=== PATIENT | male | born 1950 | race Caucasian/White ===

== ENCOUNTER 2022-04-13 06:58 | Emergency (ER) | payer MEDICARE ==
--- NOTE | 2022-04-13 07:14 | ED Physician Documentation ---
PD HPI CHEST PAIN - Stated complaint Stated Complaint: CHEST TIGHTNESS/PAIN - History obtained from History obtained from: Patient - History of Present Illness Timing - onset: How many hours ago (1), Today Timing - onset during: Rest (The patient was up awake for the day in had breakfast and was rested with onset of chest tightness, sweaty lightheaded and nausea. This lasted about 15 to 20 minutes and then improved. He is feeling okay on route here with his driving.) Timing - duration: Minutes (15-20) Timing - details: Abrupt onset, Now resolved Quality: Tightness. No: Sharp, Tearing Location: Substernal Worsened by: No: Inspiration, Movement Associated symptoms: Shortness of air, Nausea, Feeling faint / dizzy. No: Palpitations Similar symptoms before: No diagnosis (He had a similar episode to this also lasted about 15 to 20 minutes about a month ago. Seen in follow-up with his primary care who did an ECHO outpt showing mild MR and LBBB; good EF. He was referred to cardiology and saw Dr. Wagner last week with a plan for cardiac CT scan.) Recently seen: Clinic (PMD and Cardiology, Dr. Wagner.) Review of Systems Constitutional: denies: Fever, Chills Nose: denies: Rhinorrhea / runny nose, Congestion Throat: denies: Sore throat Cardiac: denies: Palpitations, Pedal edema, Calf pain Respiratory: denies: Cough GI: denies: Abdominal Pain, Vomiting, Diarrhea, Bloody / black stool Neurologic: denies: Focal weakness, Near syncope, Altered mental status, Headache PD PAST MEDICAL HISTORY - Past Medical History Past Medical History: Yes Cardiovascular: None Respiratory: None Neuro: None Endocrine/Autoimmune: None GI: None : None HEENT: None Psych: None Musculoskeletal: Osteoarthritis Derm: None - Past Surgical History Past Surgical History: Yes - Present Medications Home Medications: Ambulatory Orders Medication Instructions Recorded Confirmed No Known Home Medications 04/13/22 04/13/22 - Allergies Allergies/Adverse Reactions: Allergies Allergy/AdvReac Type Severity Reaction Status Date / Time No Known Drug Allergies Allergy Verified 04/13/22 07:12 - Living Situation Living Situation: reports: With spouse/s.o. Living Arrangement: reports: At home, Other (usually healthy, active and physically capable for house and yard chores, exercise, etc. ) - Social History Does the pt smoke?: No Smoking Status: Never smoker Does the pt drink ETOH?: Yes Does the pt have substance abuse?: No - Family History Family history: reports: CAD - Immunizations Immunizations are current?: No - POLST Patient has POLST: No PD ED PE NORMAL - Vitals Vital signs reviewed: Yes - General General: Alert and oriented X 3, No acute distress, Well developed/nourished - HEENT HEENT: Moist mucous membranes, Pharynx benign - Neck Neck: Supple, no meningeal sign, No adenopathy - Cardiac Cardiac: RRR, No rub, Other (1/6 murmur right chest to back. ) - Respiratory Respiratory: No respiratory distress, Clear bilaterally - Abdomen Abdomen: Soft, Non tender, Non distended - Derm Derm: Normal color, Warm and dry - Extremities Extremities: Normal ROM s pain, No edema, No calf tenderness / cord - Neuro Neuro: Alert and oriented X 3, No motor deficit, Normal speech Results - Vitals Vitals: Vital Signs - 24 hr 04/13/22 04/13/22 04/13/22 07:05 08:27 09:30 Temperature 36.4 C L Heart Rate 72 62 62 Respiratory 17 10 L 22 Rate Blood Pressure 154/93 H 143/83 H 125/81 H O2 Saturation 99 96 95 04/13/22 04/13/22 04/13/22 09:53 11:18 12:40 Temperature Heart Rate 64 64 78 Respiratory 12 16 14 Rate Blood Pressure 117/82 H 122/80 151/85 H O2 Saturation 98 98 97 04/13/22 15:04 Temperature Heart Rate 62 Respiratory 11 L Rate Blood Pressure 132/105 H O2 Saturation 99 Oxygen O2 Source Room air - EKG (time done) 07:05 Rate: Rate (enter#) (64) Rhythm: NSR [place]: Normal Intervals: LBBB QRS: Normal Ischemia: Normal ST segments, Non specific changes. No: ST elevation c/w ischemia - Labs Labs: Laboratory Tests 04/13/22 04/13/22 04/13/22 07:19 07:19 07:19 WBC 6.1 RBC 4.70 Hgb 14.7 Hct 44.0 MCV 93.6 MCH 31.3 H MCHC 33.4 RDW 12.8 Plt Count 274 MPV 9.9 Neut # (Auto) 3.5 Lymph # (Auto) 1.2 L [place] # (Auto) 0.8 Eos # (Auto) 0.5 Baso # (Auto) 0.0 Absolute Nucleated RBC 0.00 Nucleated RBC % 0.0 Sodium 137 Potassium 4.4 Chloride 102 Carbon Dioxide 28 Anion Gap 7.0 BUN 15 Creatinine 0.8 Estimated GFR (MDRD) 95 Glucose 114 H Calcium 9.4 Total Bilirubin 0.8 AST 20 ALT 17 Alkaline Phosphatase 63 Troponin I High Sens 22.0 H* Total Protein 7.5 Albumin 3.9 Globulin 3.6 Albumin/Globulin Ratio 1.1 Lipase 48 04/13/22 04/13/22 08:57 12:45 WBC RBC Hgb Hct MCV MCH MCHC RDW Plt Count MPV Neut # (Auto) Lymph # (Auto) [place] # (Auto) Eos # (Auto) Baso # (Auto) Absolute Nucleated RBC Nucleated RBC % Sodium Potassium Chloride Carbon Dioxide Anion Gap BUN Creatinine Estimated GFR (MDRD) Glucose Calcium Total Bilirubin AST ALT Alkaline Phosphatase Troponin I High Sens 82.1 H* 109.3 H* Total Protein Albumin Globulin Albumin/Globulin Ratio Lipase - Rads (name of study) chest xray Radiology: Prelim report reviewed (no acute process), See rad report chest CTA Radiology: Prelim report reviewed (no PE. 1.5 cm spiculated mass right upper lobe lung concerning for tumor, suggest f/u biopsy. ), See rad report PD MEDICAL DECISION MAKING - ED course Complexity details: reviewed results, re-evaluated patient, considered differential, d/w patient, d/w production support consultant (Dr. Wagner, who feels the patient needs more urgent cardiac evaluation, likely heart cath. Suggests transfer. ) ED course: Patient presented with an abrupt episode of chest tightness associated with nausea sweaty and lightheaded. Concern for cardiac cause. The symptoms did improve after just 20 minutes or so. His initial EKG does not show any ischemic changes. His troponin level is just barely above normal on initial reading. However this was done very shortly after the symptoms. A repeat troponin 1-1/2 hours later showed a fourfold increase from 22-80. Repeat another 2 hours after is showing over 100. Even though this is not a very large rise in the troponin absolute number, it is a fourfold then 5 fold increase suggestive of acute injury. I had talked with Dr. Wagner with the initial [address] Wagner did feel the patient needed more urgent evaluation given the test results. He does have the underlying left bundle branch block which makes stress testing more difficult to interpret. I did have concern for potential PE as the patient had had some travel recently. The abrupt nature of the symptoms could also be suggestive that way. I did a CT of the chest angio. This did not show any PEs. However there was a incidental finding of a spiculated 1-1/2 cm mass in the right upper lobe concerning for lung cancer. Suggested his outpatient biopsy. I did convey this to the patient and his . However I do not feel that this finding on the CT chest would cause the symptoms he had. Alternatives to unstable angina or small vessel CO is the possibility of intermittent dysrhythmia that allowed for myocardial injury. However coronary vascular abnormalities need to be evaluated certainly. [facility] did not initially have any beds available but they were expecting discharges. They subsequently did call back with bed available and accepted transfer of the patient. - Critical Care Time(min): 35 Time Includes: Direct patient care, Document care, Medical consult Data interpretation: Labs, Pulse ox, See progress note Procedures excluded from critical care time: EKG Departure - Departure Disposition: 02 Transfer Acute Care Hosp Clinical Impression: Elevated troponin, Chest tightness, Mass of right lung, Non-STEMI (non-ST e levated myocardial infarction) Condition: Stable Record reviewed to determine appropriate education?: Yes
[2022-04-13] MEDS ORDERED: ONDANSETRON 4 MG/2 ML VIAL IVP STA (07:42)
[2022-04-13] MEDS: MAG HYDROX/AL HYDROX/SIMETH 30 ML UDC PO STA ×2 (07:46→07:47)
[2022-04-13 07:56] LABS: BASOPHILS % (AUTO) 0.7 %; EOSINOPHILS # (AUTO) 0.5 10^3/uL (0.0-0.7); EOSINOPHILS % (AUTO) 8.7 %; HGB - HEMOGLOBIN 14.7 g/dL (14.0-18.0); LYMPHOCYTES # (AUTO) 1.2 10^3/uL (1.5-3.5); LYMPHOCYTES % (AUTO) 19.9 %; MEAN CORPUSCULAR HEMOGLOBIN 31.3 pg (27.0-31.0); MEAN CORPUSCULAR HGB CONC 33.4 g/dL (32.0-36.0); MEAN CORPUSCULAR VOLUME 93.6 fL (80.0-94.0); MEAN PLATELET VOLUME 9.9 fL (7.4-11.4); MONOCYTES # (AUTO) 0.8 10^3/uL (0.0-1.0); MONOCYTES % (AUTO) 13.4 %; NEUTROPHILS # (AUTO) 3.5 10^3/uL (1.5-6.6); NEUTROPHILS % (AUTO) 56.8 %; PLT - PLATELET COUNT 274 10^3/uL (130-450); RED CELL DISTRIBUTION WIDTH 12.8 % (12.0-15.0); WHITE BLOOD COUNT 6.1 x10^3/uL (4.8-10.8)
--- NOTE | 2022-04-13 08:02 | XRAY Report ---
PROCEDURE: Chest 1 View X-Ray INDICATIONS: chest pain TECHNIQUE: One view of the chest was acquired. COMPARISON: None available FINDINGS: Surgical changes and devices: Overlying monitoring leads Lungs and pleura: Mild diffuse interstitial thickening. No focal consolidation, pleural effusion, or pneumothorax. Mediastinum: Heart size at the upper limits of normal. No central venous congestion. Slight prominen ce of central pulmonary arteries. Bones and chest wall: No suspicious bony lesions. Overlying soft tissues appear unremarkable. IMPRESSION: 1. Slight interstitial prominence may indicate slight interstitial edema or viral pneumonitis. 2. No central venous congestion to suggest acute CHF. Reviewed by: Emelina Berg MD on 04/13/2022 8:01 AM PDT Approved by: Emelina Berg MD on 04/13/2022 8:01 AM PDT Station ID: [id number]
[2022-04-13 08:06] LABS: ALBUMIN 3.9 g/dL (3.2-5.5); ALBUMIN/GLOBULIN RATIO 1.1 (1.0-2.2); BILIRUBIN,TOTAL 0.8 mg/dL (0.2-1.0); CALCIUM 9.4 mg/dL (8.5-10.3); CREATININE 0.8 mg/dL (0.6-1.2); POTASSIUM 4.4 mmol/L (3.5-5.0); TOTAL PROTEIN 7.5 g/dL (6.7-8.2)
--- NOTE | 2022-04-13 09:03 | Ultrasound Report ---
PROCEDURE: Abdomen Limited INDICATIONS: nausea/stomach/chest pain briefly this morning TECHNIQUE: Real-time focused scanning was performed of the abdomen, with image documentation. COMPARISON: None FINDINGS: Liver is normal in size and show mildly increased liver parenchymal echotexture. 2 hepatic cysts are seen measures 9 x 5 x 8 mm in size in hepatic lobe and 5 x 5 x 4 mm in size in right hepatic lobe. No gross solid appearing hepatic lesion. There is no gallstone. No gallbladder wall thickening or pericholecystic fluid. No sonographic Enriquez 's sign. . There is no intrahepatic biliary ductal dilatation. Common bile duct measures 4.4 mm in diameter an d is within normal limits. Pancreas is not visualized due to overlying bowel gas. Right kidney measures 9.5 cm in and 1.5 cm in renal cortical thickness. No hydronephrosis or nephroli thiasis. No solid appearing renal lesion. IMPRESSION: 1. Mild hepatic steatosis and multiple hepatic cysts as above. No gross solid appearing hepatic lesio n. . Normal-appearing gallbladder. No biliary ductal dilatation. Reviewed by: Brandon Herrmann MD on 04/13/2022 9:02 AM PDT Approved by: Brandon Herrmann MD on 04/13/2022 9:02 AM PDT Station ID: [id number]
[2022-04-13] MEDS ORDERED: CLOPIDOGREL 75 MG TABLET PO STA (10:04)
[2022-04-13] MEDS ORDERED: ASPIRIN CHEW 81 MG TABLET PO STA (10:04)
--- NOTE | 2022-04-13 11:06 | CT Report ---
PROCEDURE: ANGIO CHEST W/WO INDICATIONS: abrupt chest tightness/dyspnea this morning CONTRAST: IV CONTRAST: Optiray 320 ml: 80 PO CONTRAST: *NO PO CONTRAST TECHNIQUE: After the administration of intravenous contrast, 2 mm axial images were acquired from the pulmonary apices to the posterior costophrenic angles during the arterial phase. In addition, 1 mm lung kernel and 5 mm soft tissue kernel reconstructions were performed. 3-dimensional coronal oblique maximum int ensity projection (MIP) reformats, 8 mm axial MIP, and 5 mm coronal and sagittal MPR reformats were t hen performed through the thorax. For radiation dose reduction, the following was used: automated exp osure control, adjustment of mA and/or kV according to patient size. COMPARISON: CXR 04/13/2022. FINDINGS: Image quality: Excellent. Pulmonary arteries: Pulmonary arteries are normal in size, and demonstrate no intraluminal filling d efects to suggest central pulmonary embolism. Lungs and pleura: Right upper lobe spiculated pulmonary nodule with a solid component measuring 1.1 c m, (5/81). The spiculations extend out to 1.8 cm. Right lower lobe pulmonary nodule measuring 0.3 cm, (6/274). Peripheral reticular thickening. No pleural effusions or pneumothorax. Central and periph eral airways are patent. Mediastinum: Heart size is normal, without pericardial effusion. Right hilar node measuring 0.7 cm, (5/100). Additional small right hilar nodes. Thoracic aorta is normal in caliber and enhancement. E sophagus is normal in caliber, small hiatal hernia. Bones and chest wall: No suspicious bony lesions. T12 intraosseous hemangioma. Ribs and thoracic sp ine appear intact throughout. No axillary or supraclavicular adenopathy. The thyroid is normal in s ize and there are no incidental findings. Abdomen: Visualized upper abdominal solid organs appear normal in the early arterial phase of enhanc ement. Subtle hypodensity in the liver, (5/169). No adrenal nodule. IMPRESSION: 1. No pulmonary embolism. 2. No consolidation. No pleural effusion. Diffuse interstitial prominence which could be due to inter stitial lung disease. 3. Right upper lobe spiculated pulmonary nodule with a solid component measuring 1.1 cm. This is conc erning for lung cancer. -Recommend CT-guided biopsy for tissue diagnosis. 4. Shotty appearing right hilar lymph nodes are indeterminant. -These could be further evaluated with PET/CT. Results were communicated to Dr. Merlin Bailey at 04/13/2022 11:02 AM PDT. Reviewed by: Satish Demarco MD on 04/13/2022 11:04 AM PDT Approved by: Satish Demarco MD on 04/13/2022 11:04 AM PDT Station ID: [id number]
[2022-04-13] MEDS ORDERED: ATORVASTATIN 10 MG TABLET PO STA (12:40)
[2022-04-13 17:19] VITALS: BP 125/88
== END 2022-04-13 17:27 | disposition short-term general hospital (02) ==
LOC: ED 06:58
DX: I21.4 Non-ST elevation (NSTEMI) myocardial infarction (principal); R07.9 Chest pain, unspecified; R91.8 Other nonspecific abnormal finding of lung field; Z20.822 Contact with and (suspected) exposure to COVID-19
CPT/HCPCS: 36415; 71045; 71275; 76705; 80053; 83690; 84484; 85025; 87635; 93005; 96374; 99285; 99291; A9270; Q9967

== ENCOUNTER 2022-04-13 17:22 | Outpatient (CLI) | payer MEDICARE | END 2022-04-13 17:23 | disposition short-term general hospital (02) | LOC: EMS 17:22 | PROVIDERS: ATTEND Emergency Medicine | DX: I21.4 Non-ST elevation (NSTEMI) myocardial infarction (principal) | CPT/HCPCS: A0425; A0428 ==

== ENCOUNTER 2022-08-04 13:22 | Outpatient (CLI) | payer MEDICARE | END 2022-08-04 13:23 | disposition home or self-care (01) | LOC: DI 13:22 | PROVIDERS: ATTEND Nurse Practitioner Family | DX: I25.10 Atherosclerotic heart disease of native coronary artery without angina pectoris (principal); I34.0 Nonrheumatic mitral (valve) insufficiency; I51.7 Cardiomegaly; I49.8 Other specified cardiac arrhythmias; Z95.5 Presence of coronary angioplasty implant and graft | CPT/HCPCS: 93306 ==